=== PATIENT | female | born 1950 | race Caucasian/White ===

== ENCOUNTER 2020-11-16 08:58 | Outpatient (RCR) | payer MEDICARE, MEDICAID ==
[2015-11-25 18:50] VITALS: BP 166/88
[~2020-11-16 08:58] MED LIST: ALAVERT10 MG PO; ATENOLOL25 MG PO; ATORVASTATIN CA20 MG PO; CLONAZEPAM0.5 MG PO; COZAAR50 MG PO; CYMBALTA30 MG PO; CYMBALTA60 MG PO; EVISTA 60MG60 MG/TAB PO; GABAPENTIN300 MG PO; GEMFIBROZIL600 MG PO; GLIPIZIDE XL5 MG PO; LEVOTHROID0.2 M1 PO; LIDODERM5% TP; LISINOPRIL20 MG PO; LOVAZA1 GM PO; MAXALT MLT10 MG/TAB PO; METAXALONE800 MG PO; ONGLYZA5 MG PO; TENORMIN50 MG PO; ULTRAM50 MG PO; VITAMIN D50000 I1 PO; XOPENEX HF0.045 MG/A IH
== END 2020-11-23 15:51 | disposition home or self-care (01) ==
LOC: OPPGERO 08:58
DX: F39 Unspecified mood [affective] disorder (principal); R45.851 Suicidal ideations; E11.9 Type 2 diabetes mellitus without complications; K21.9 Gastro-esophageal reflux disease without esophagitis; I10 Essential (primary) hypertension; E03.9 Hypothyroidism, unspecified; E66.01 Morbid (severe) obesity due to excess calories; G47.33 Obstructive sleep apnea (adult) (pediatric); R32 Unspecified urinary incontinence; Z79.899 Other long term (current) drug therapy

== ENCOUNTER 2020-11-27 08:30 | Outpatient (RCR) | payer MEDICARE, MEDICAID ==
[2015-11-25 18:50] VITALS: BP 166/88
== END 2020-12-26 15:21 | disposition home or self-care (01) ==
LOC: OPPGERO 08:30
DX: F39 Unspecified mood [affective] disorder (principal); Z91.5 Personal history of self-harm; E11.9 Type 2 diabetes mellitus without complications; K21.9 Gastro-esophageal reflux disease without esophagitis; I10 Essential (primary) hypertension; E03.9 Hypothyroidism, unspecified; E66.01 Morbid (severe) obesity due to excess calories; G47.33 Obstructive sleep apnea (adult) (pediatric); R32 Unspecified urinary incontinence; Z91.410 Personal history of adult physical and sexual abuse; Z90.89 Acquired absence of other organs; Z98.890 Other specified postprocedural states; Z96.653 Presence of artificial knee joint, bilateral; Z90.710 Acquired absence of both cervix and uterus; Z98.51 Tubal ligation status; Z79.899 Other long term (current) drug therapy

== ENCOUNTER 2020-12-27 08:21 | Outpatient (RCR) | payer MEDICARE, MEDICAID | END 2021-01-25 22:21 | disposition home or self-care (01) | LOC: OPPGERO 08:21 | DX: F39 Unspecified mood [affective] disorder (principal); R45.851 Suicidal ideations; E11.9 Type 2 diabetes mellitus without complications; K21.9 Gastro-esophageal reflux disease without esophagitis; I10 Essential (primary) hypertension; E03.9 Hypothyroidism, unspecified; E66.01 Morbid (severe) obesity due to excess calories; G47.33 Obstructive sleep apnea (adult) (pediatric); G25.81 Restless legs syndrome; R32 Unspecified urinary incontinence; Z80.1 Family history of malignant neoplasm of trachea, bronchus and lung; K35.80 Unspecified acute appendicitis; Z98.890 Other specified postprocedural states; Z90.710 Acquired absence of both cervix and uterus; Z98.51 Tubal ligation status ==

== ENCOUNTER 2021-01-28 04:41 | Outpatient (RCR) | payer MEDICARE, MEDICAID | END 2021-02-26 15:43 | disposition still patient (30) | LOC: OPPGERO 04:41 | DX: F39 Unspecified mood [affective] disorder (principal); E11.9 Type 2 diabetes mellitus without complications; E03.9 Hypothyroidism, unspecified; I10 Essential (primary) hypertension; E66.01 Morbid (severe) obesity due to excess calories; G47.33 Obstructive sleep apnea (adult) (pediatric); Z86.59 Personal history of other mental and behavioral disorders; Z98.890 Other specified postprocedural states; Z90.89 Acquired absence of other organs; Z90.710 Acquired absence of both cervix and uterus; Z98.51 Tubal ligation status; Z63.5 Disruption of family by separation and divorce ==

== ENCOUNTER 2021-02-27 15:22 | Outpatient (RCR) | payer MEDICARE, MEDICAID | END 2021-03-28 13:44 | disposition home or self-care (01) | LOC: OPPGERO 15:22 | DX: F39 Unspecified mood [affective] disorder (principal); E11.9 Type 2 diabetes mellitus without complications; I10 Essential (primary) hypertension; E03.9 Hypothyroidism, unspecified; K21.9 Gastro-esophageal reflux disease without esophagitis; G47.33 Obstructive sleep apnea (adult) (pediatric); Z86.59 Personal history of other mental and behavioral disorders; Z98.890 Other specified postprocedural states; Z98.49 Cataract extraction status, unspecified eye; Z98.51 Tubal ligation status; Z90.710 Acquired absence of both cervix and uterus; Z96.653 Presence of artificial knee joint, bilateral; Z63.5 Disruption of family by separation and divorce; Z83.3 Family history of diabetes mellitus ==